=== PATIENT | female | born 1950 | race Caucasian/White ===

== ENCOUNTER 2020-05-02 13:46 | Emergency (ER) | payer MEDICARE, SELFPAY ==
[2020-05-02 13:47] VITALS: BP 105/82; PULSE 69; RESP 18; TEMP 36.7; O2SAT 95; BMI 31.7
--- NOTE | 2020-05-02 14:03 | CT_ITS ---
STUDY: CT LUMBAR SPINE WITHOUT CONTRAST REASON FOR EXAM: Female, 70 years old. Injury and pain RADIATION DOSAGE (If Supplied By Facility): CTDIvol = ( 29.71 ) mGy, DLP = ( 781.70 ) mGycm TECHNIQUE: The patient was scanned in a multi detector CT scanner. High resolution transaxial imaging was performed. Images were obtained from L1 to S1 vertebral level. Sagittal and coronal images were reconstructed. Individualized dose optimization techniques were used for this CT. COMPARISON: None FINDINGS: There is straightening of the normal lumbar lordosis. There is no substantial scoliosis. Normal vertebrae of the lumbar spine. L1-2: Mild degree of disc space narrowing. Spondylosis. No evidence of spinal stenosis. L2-3: Is evidence of prior discogram. Anterior spondylosis worse on the right side. No significant disc herniation is seen. Mild degree of facet joint osteoarthritis. L3-4: Mild degree of disc space narrowing. Diffuse posterior disc bulge. Mild degree of bilateral neural foraminal stenosis due to the diffuse posterior disc bulge and facet joint proliferation. L4-5: Mild degree of disc space narrowing. Diffuse posterior disc herniation. Facet joint osteoarthritis and hypertrophy. Moderate degree of bilateral neural foraminal stenosis. L5-S1: Marked degree of disc space narrowing. Spondylolisthesis. Posterior spondylosis causing a moderate degree of central canal stenosis worse on the right side of the midline. Normal visualized paraspinous soft tissue structures. CT/Spine Lumbar without Contrast IMPRESSION: Multilevel degenerative changes, as described above. Multilevel spinal stenosis. Electronically Signed: Bro Nino MD at 14:47 EST , Service support ,
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
[2020-05-02 14:11] VITALS: RESP 18
[2020-05-02] MEDS: Acetaminophen 325 MG Tablet 650 MG PO (14:15)
[2020-05-02 15:21] VITALS: BP 158/77; PULSE 64; RESP 16; TEMP 36.6; O2SAT 97
== END 2020-05-02 16:40 | disposition home or self-care (01) ==
PROVIDERS: Emergency Provider Emergency Medicine
DX: M62.830 Muscle spasm of back (principal); V49.49XA Driver injured in collision with other motor vehicles in traffic accident, initial encounter; Y93.9 Activity, unspecified; Y92.410 Unspecified street and highway as the place of occurrence of the external cause; Y99.8 Other external cause status; Z88.1 Allergy status to other antibiotic agents; Z88.2 Allergy status to sulfonamides
CPT/HCPCS: 72131; 99284